=== PATIENT | female | born 1985 | race Asian ===

== ENCOUNTER 2017-11-29 17:30 | Emergency (ER) | payer OTHER ==
[~2017-11-29] VITALS: Ht 160 cm; Wt 81.6 kg
[~2017-11-29 17:30] MED LIST: SEROQUEL100 MG OR
[2017-11-29 18:15] LABS: PLATELET COUNT 208 K/uL (152-353)
[2017-11-29 18:23] LABS: POTASSIUM 3.7 mmol/L (3.6-5.2)
[2017-11-29 20:00] VITALS: BP 128/74; TEMP 99.9
== END 2017-11-29 20:06 | disposition home or self-care (01) ==
LOC: ED 17:30
DX: K80.20 Calculus of gallbladder without cholecystitis without obstruction (principal)
CPT/HCPCS: 36415; 80053; 81000; 85027; 96372; 99283; J0696; J1885

== ENCOUNTER 2017-12-09 07:49 | Day surgery (SDC) | payer OTHER | END 2017-12-09 10:32 | disposition home or self-care (01) | LOC: OR 07:49 | PROC: 0DJ08ZZ Inspection of Upper Intestinal Tract, Via Natural or Artificial Opening Endoscopic (ICD-10-PCS; principal; 2017-12-09) | DX: R10.13 Epigastric pain (principal) | CPT/HCPCS: J2001; J2250; J2704 ==

== ENCOUNTER 2022-03-04 09:51 | Outpatient (CLI) | payer OTHER ==
[2022-03-04 10:24] LABS: PLATELET COUNT 266 K/uL (152-353)
== END 2022-03-04 18:57 | disposition home or self-care (01) ==
LOC: LABW 09:51
PROVIDERS: ATTEND Internal Medicine
DX: I10 Essential (primary) hypertension (principal); E78.49 Other hyperlipidemia; R53.83 Other fatigue; R79.0 Abnormal level of blood mineral
CPT/HCPCS: 36415; 80048; 80061; 80076; 84439; 84443; 85027